=== PATIENT | female | born 1985 | race African-American/Black ===

== ENCOUNTER 2018-02-11 21:57 | Emergency (ER) | payer OTHER ==
[~2018-02-11] VITALS: Ht 172.7 cm; Wt 86.2 kg
[~2018-02-11 21:57] MED LIST: ACETAMINOPHEN-1 EAC1 PO; FLAGYL500 MG PO; FLEXERIL PO; KEFLEX500 MG PO; LOPERAMIDE 2 MG2 M1 PO; NORCO 5-325 TA1 EACH PO; OXYCONTIN10 M1 PO; OXYCONTIN20 M1 PO; PHENAZOPYRIDIN200 M2 PO; PHENERGAN 25 MG25 M1 PO; PREDNISONE 20 M20 MG PO; ZOFRAN ODT4 MG PO
[2018-02-11 22:42] LABS: ABSOLUTE NEUTROPHILS 7.5 thou/uL (1.4-8.2); BASOPHILS 0.5 % (0.0-2.0); HEMATOCRIT 38.5 % (37.0-47.0); HEMOGLOBIN 12.8 gm/dL (12.0-15.0); LYMPHOCYTES 35.2 % (24.0-44.0); MCH 25.8 pg (26.0-34.0); MCHC 33.1 g/dL (28.0-37.0); PLATELET COUNT 245 thou/uL (150-400); POLYS 58.3 % (36.0-66.0); RBC 4.94 mil/uL (4.20-5.00); RDW 15.4 % (10.5-14.5); WBC 12.8 thou/uL (4.0-11.0)
[2018-02-11 22:45] LABS: ANION GAP 6 mmol/L (7-16); BUN 12 mg/dL (7-18); CALCIUM 9.2 mg/dL (8.5-10.1); CHLORIDE 102 mmol/L (98-107); CO2 19 mmol/L (21-32); CREATININE 0.7 mg/dL (0.6-1.0); GLUCOSE 90 mg/dL (74-106); POTASSIUM 5.5 mmol/L (3.5-5.1); SODIUM 127 mmol/L (136-145)
[2018-02-11 22:45] LABS: URINE BILIRUBIN NEGATIVE (Negative); URINE BLOOD NEGATIVE (Negative); URINE CLARITY CLEAR; URINE COLOR YELLOW; URINE GLUCOSE-RANDOM* NEGATIVE (Negative); URINE KETONES NEGATIVE (Negative); URINE LEUKOCYTES-REFLEX NEGATIVE (Negative); URINE PROTEIN (DIPSTICK) NEGATIVE (Negative); URINE UROBILINOGEN 0.2 E.U./dl (0.2-1.0)
[2018-02-11 22:48] LABS: URINE NITRITE-REFLEX POSITIVE (Negative)
[2018-02-11 22:53] LABS: BACTERIA-REFLEX >30 Many /HPF (None Seen); CASTS None Seen /LPF (None Seen); CRYSTALS None Seen /LPF (None Seen); MUCUS 0-3 Light strn/LPF (None Seen); SQUAMOUS 4-10 Moderate /LPF (0-3); URINE RBC 0-2 Rare /HPF (0-2); URINE WBC-REFLEX 0-5 Rare /HPF (0-5)
[2018-02-11 22:53] LABS: TOTAL BILIRUBIN 0.4 mg/dL (<0.1-1.0); TOTAL PROTEIN 8.2 g/dL (6.4-8.2)
[2018-02-12 00:30] VITALS: BP 117/72
== END 2018-02-12 00:35 | disposition left against medical advice (07) ==
LOC: ER 21:57
PROVIDERS: Emergency Medicine
DX: O26.899 Other specified pregnancy related conditions, unspecified trimester (principal); Z3A.00 Weeks of gestation of pregnancy not specified; R10.9 Unspecified abdominal pain

== ENCOUNTER 2018-02-14 16:37 | Emergency (ER) | payer OTHER ==
[~2018-02-14] VITALS: Ht 172.7 cm; Wt 86.2 kg
[2018-02-14 17:13] LABS: URINE BILIRUBIN NEGATIVE (Negative); URINE BLOOD 3+ (Negative); URINE CLARITY CLEAR; URINE COLOR YELLOW; URINE GLUCOSE-RANDOM* NEGATIVE (Negative); URINE KETONES NEGATIVE (Negative); URINE LEUKOCYTES-REFLEX NEGATIVE (Negative); URINE NITRITE-REFLEX NEGATIVE (Negative); URINE PROTEIN (DIPSTICK) NEGATIVE (Negative); URINE UROBILINOGEN 0.2 E.U./dl (0.2-1.0)
[2018-02-14 17:33] LABS: CASTS None Seen /LPF (None Seen); CRYSTALS None Seen /LPF (None Seen); SQUAMOUS 4-10 Moderate /LPF (0-3)
[2018-02-14 17:34] LABS: BACTERIA-REFLEX >30 Many /HPF (None Seen); URINE RBC 0-2 Rare /HPF (0-2); URINE WBC-REFLEX 0-5 Rare /HPF (0-5)
[2018-02-14 19:04] LABS: CALCIUM 9.1 mg/dL (8.5-10.1); CREATININE 0.9 mg/dL (0.6-1.0); POTASSIUM 3.5 mmol/L (3.5-5.1)
[2018-02-14] MEDS ORDERED: FLAGYL500 MG PO (19:59)
[2018-02-14 20:12] VITALS: BP 125/71
== END 2018-02-14 20:12 | disposition home or self-care (01) ==
LOC: ER 16:37
PROVIDERS: Physician Assistant
DX: O20.0 Threatened abortion (principal); O23.591 Infection of other part of genital tract in pregnancy, first trimester; F17.210 Nicotine dependence, cigarettes, uncomplicated; Z3A.00 Weeks of gestation of pregnancy not specified

== ENCOUNTER 2018-10-26 19:19 | Emergency (ER) | payer OTHER ==
[~2018-10-26] VITALS: Ht 175.3 cm; Wt 84.8 kg
[2018-10-26] MEDS ORDERED: HYDROCHLOROTHIA25 M1 PO (19:27)
[2018-10-26 19:57] LABS: URINE BILIRUBIN NEGATIVE (Negative); URINE BLOOD NEGATIVE (Negative); URINE CLARITY CLEAR; URINE COLOR YELLOW; URINE GLUCOSE-RANDOM* NEGATIVE (Negative); URINE KETONES NEGATIVE (Negative); URINE LEUKOCYTES-REFLEX NEGATIVE (Negative); URINE NITRITE-REFLEX NEGATIVE (Negative); URINE PROTEIN (DIPSTICK) NEGATIVE (Negative)
[2018-10-26 20:30] LABS: ABSOLUTE NEUTROPHILS 5.5 thou/uL (1.4-8.2); BASOPHILS 0.7 % (0.0-2.0); EOSINOPHILS 0.8 % (0.0-3.0); HEMATOCRIT 36.5 % (37.0-47.0); HEMOGLOBIN 12.6 gm/dL (12.0-15.0); LYMPHOCYTES 37.3 % (24.0-44.0); MCH 26.8 pg (26.0-34.0); MCHC 34.4 g/dL (28.0-37.0); MCV 77.8 fL (80.0-100.0); MONOCYTES 5.5 % (1.0-8.0); PLATELET COUNT 330 thou/uL (150-400); POLYS 55.7 % (36.0-66.0); RBC 4.69 mil/uL (4.20-5.00); RDW 14.4 % (10.5-14.5); WBC 9.8 thou/uL (4.0-11.0)
[2018-10-26 20:38] LABS: CALCIUM 9.4 mg/dL (8.5-10.1); CREATININE 0.7 mg/dL (0.6-1.0); POTASSIUM 3.4 mmol/L (3.5-5.1)
[2018-10-26 20:44] LABS: ALBUMIN 3.9 g/dL (3.4-5.0); TOTAL BILIRUBIN 0.3 mg/dL (<0.1-1.0); TOTAL PROTEIN 7.6 g/dL (6.4-8.2)
[2018-10-26] MEDS ORDERED: ULTRAM 50MG TAB50 MG PO (21:47)
[2018-10-26] MEDS ORDERED: FLAGYL500 M1 PO (21:47)
[2018-10-26 22:00] VITALS: BP 120/83
== END 2018-10-26 22:01 | disposition home or self-care (01) ==
LOC: ER 19:19
PROVIDERS: Physician Assistant
DX: N76.0 Acute vaginitis (principal); R10.30 Lower abdominal pain, unspecified; I10 Essential (primary) hypertension; Z98.890 Other specified postprocedural states; F17.210 Nicotine dependence, cigarettes, uncomplicated

== ENCOUNTER 2019-02-15 14:55 | Emergency (ER) | payer OTHER ==
[~2019-02-15] VITALS: Ht 175.3 cm; Wt 81.7 kg
[~2019-02-15 14:55] MED LIST changes: +FLAGYL500 M1 PO; +HYDROCHLOROTHIA25 M1 PO; +ULTRAM 50MG TAB50 MG PO
[2019-02-15] MEDS ORDERED: MOBIC15 MG PO (15:33)
[2019-02-15 15:48] VITALS: BP 145/88
== END 2019-02-15 15:49 | disposition home or self-care (01) ==
LOC: ER 14:55
DX: S93.492A Sprain of other ligament of left ankle, initial encounter (principal); I10 Essential (primary) hypertension; F17.210 Nicotine dependence, cigarettes, uncomplicated; Z98.890 Other specified postprocedural states; W01.0XXA Fall on same level from slipping, tripping and stumbling without subsequent striking against object, initial encounter; Y93.89 Activity, other specified; Y92.89 Other specified places as the place of occurrence of the external cause; Y99.8 Other external cause status

== ENCOUNTER 2020-04-04 04:17 | Emergency (ER) | payer OTHER ==
[~2020-04-04] VITALS: Ht 172.7 cm; Wt 80.7 kg
[~2020-04-04 04:17] MED LIST changes: +MOBIC15 MG PO
[2020-04-04] MEDS ORDERED: PREDNISONE 10 M10 MG PO (04:49)
[2020-04-04] MEDS ORDERED: KEFLEX500 M1 PO (04:50)
[2020-04-04 06:11] VITALS: BP 137/90
== END 2020-04-04 06:12 | disposition home or self-care (01) ==
LOC: ER 04:17
DX: S60.861A Insect bite (nonvenomous) of right wrist, initial encounter (principal); I10 Essential (primary) hypertension; F17.210 Nicotine dependence, cigarettes, uncomplicated; Z98.890 Other specified postprocedural states; Z79.899 Other long term (current) drug therapy; W57.XXXA Bitten or stung by nonvenomous insect and other nonvenomous arthropods, initial encounter; Y93.89 Activity, other specified; Y92.89 Other specified places as the place of occurrence of the external cause; Y99.8 Other external cause status

== ENCOUNTER 2021-09-12 14:26 | Emergency (ER) | payer OTHER ==
[~2021-09-12] VITALS: Ht 175.3 cm; Wt 85.3 kg
[~2021-09-12 14:26] MED LIST changes: +KEFLEX500 M1 PO; +PREDNISONE 10 M10 MG PO
[2021-09-12 15:04] LABS: ABSOLUTE NEUTROPHILS 3.1 thou/uL (1.4-8.2); BASOPHILS 0.8 % (0.0-2.0); EOSINOPHILS 1.2 % (0.0-3.0); HEMATOCRIT 37.5 % (37.0-47.0); HEMOGLOBIN 12.4 gm/dL (12.0-15.0); LYMPHOCYTES 52.2 % (24.0-44.0); MCH 25.2 pg (26.0-34.0); MCHC 33.2 g/dL (28.0-37.0); MCV 76.1 fL (80.0-100.0); MONOCYTES 4.2 % (1.0-8.0); PLATELET COUNT 376 thou/uL (150-400); POLYS 41.6 % (36.0-66.0); RBC 4.92 mil/uL (4.20-5.00); RDW 15.3 % (10.5-14.5); WBC 7.5 thou/uL (4.0-11.0)
[2021-09-12 15:09] LABS: URINE BILIRUBIN NEGATIVE (Negative); URINE BLOOD 1+ (Negative); URINE CLARITY CLEAR; URINE COLOR YELLOW; URINE GLUCOSE-RANDOM* NEGATIVE (Negative); URINE KETONES NEGATIVE (Negative); URINE LEUKOCYTES-REFLEX NEGATIVE (Negative); URINE NITRITE-REFLEX NEGATIVE (Negative); URINE PROTEIN (DIPSTICK) NEGATIVE (Negative); URINE SPECIFIC GRAVITY >= 1.030 (1.005-1.035); URINE UROBILINOGEN 0.2 E.U./dl (0.2-1.0)
[2021-09-12 15:15] LABS: CALCIUM 9.2 mg/dL (8.5-10.1); CREATININE 0.8 mg/dL (0.6-1.0); POTASSIUM 3.3 mmol/L (3.5-5.1)
[2021-09-12 15:17] LABS: CASTS None Seen /LPF (None Seen); SQUAMOUS 4-10 Moderate /LPF (0-3); URINE WBC-REFLEX 0-5 Rare /HPF (0-5)
[2021-09-12 15:18] LABS: BACTERIA-REFLEX 1-9 Few /HPF (None Seen); CRYSTALS None Seen /LPF (None Seen); URINE RBC 1-2 Rare /HPF (NONE SEEN)
[2021-09-12 15:23] LABS: ALBUMIN 4.2 g/dL (3.4-5.0); TOTAL BILIRUBIN 0.5 mg/dL (0.2-1.0); TOTAL PROTEIN 7.9 g/dL (6.4-8.2)
[2021-09-12 19:02] VITALS: BP 107/70
[2021-09-12] MEDS ORDERED: ZOFRAN ODT4 MG PO (19:02)
== END 2021-09-12 19:02 | disposition home or self-care (01) ==
LOC: ER 14:26
PROVIDERS: Emergency Medicine; Nurse Practitioner
DX: O00.101 Right tubal pregnancy without intrauterine pregnancy (principal); I10 Essential (primary) hypertension; F17.210 Nicotine dependence, cigarettes, uncomplicated; Z98.890 Other specified postprocedural states; Z79.891 Long term (current) use of opiate analgesic; Z79.899 Other long term (current) drug therapy

== ENCOUNTER 2021-09-16 11:20 | Emergency (ER) | payer OTHER ==
[~2021-09-16] VITALS: Ht 175.3 cm; Wt 85.3 kg
[2021-09-16] MEDS ORDERED: ROXICODONE15 MG PO (11:47)
[2021-09-16 11:53] LABS: ABSOLUTE NEUTROPHILS 5.2 thou/uL (1.4-8.2); BASOPHILS 1.5 % (0.0-2.0); EOSINOPHILS 0.7 % (0.0-3.0); HEMOGLOBIN 11.8 gm/dL (12.0-15.0); LYMPHOCYTES 42.1 % (24.0-44.0); MCH 25.2 pg (26.0-34.0); MCHC 33.8 g/dL (28.0-37.0); MCV 74.5 fL (80.0-100.0); PLATELET COUNT 360 thou/uL (150-400); POLYS 51.7 % (36.0-66.0); RDW 15.4 % (10.5-14.5); WBC 10.1 thou/uL (4.0-11.0)
[2021-09-16 12:08] LABS: CALCIUM 9.5 mg/dL (8.5-10.1); CREATININE 0.8 mg/dL (0.6-1.0); POTASSIUM 3.5 mmol/L (3.5-5.1)
[2021-09-16 12:13] LABS: ALBUMIN 4.2 g/dL (3.4-5.0); TOTAL BILIRUBIN 0.3 mg/dL (0.2-1.0); TOTAL PROTEIN 7.9 g/dL (6.4-8.2)
[2021-09-16 15:05] VITALS: BP 117/71
== END 2021-09-16 15:16 | disposition home or self-care (01) ==
LOC: ER 11:20
PROVIDERS: Nurse Practitioner
DX: O00.101 Right tubal pregnancy without intrauterine pregnancy (principal); Z3A.01 Less than 8 weeks gestation of pregnancy; I10 Essential (primary) hypertension; F17.210 Nicotine dependence, cigarettes, uncomplicated; Z98.890 Other specified postprocedural states; Z79.899 Other long term (current) drug therapy